=== PATIENT | female | born 1980 | race Caucasian/White ===

== ENCOUNTER 2019-11-20 09:45 | Outpatient (CLI) | payer BC, OTHER ==
[~2019-11-20] VITALS: Ht 167.7 cm; Wt 69.1 kg
[~2019-11-20 09:45] MED LIST: FRS325T PO; OXYC-272 PO
== END 2019-11-20 10:10 | disposition home or self-care (01) ==
LOC: PREOP 09:45
PROVIDERS: ATTEND Surgery
DX: Z01.818 Encounter for other preprocedural examination (principal)

== ENCOUNTER 2019-11-26 06:20 | Day surgery (SDC) | payer BC, OTHER ==
[2019-11-26] VITALS (9 sets, daily range): BP systolic 106–150; BP diastolic 72–84
[~2019-11-26] VITALS: Ht 167 cm; Wt 69.1 kg
[2019-11-26] MEDS ORDERED: ceFAZolin INJECTION 1,000 MG in WATER (STERILE) FOR INJECTION 10 ML IV ONE (06:30)
[2019-11-26] MEDS ORDERED: CATHETER FLUSH 10 ML SYR IV PRN (06:45)
[2019-11-26] MEDS ORDERED: ONDANSETRON 4 MG/2 ML (SDV) Z0FRAN IV ONE (07:00)
[2019-11-26] MEDS ORDERED: MIDAZOLAM 2 MG/2 ML (VERSED) VIAL IV ONE (07:00)
[2019-11-26] MEDS ORDERED: FAMOTIDINE 20MG/2ML IV (PEPCID) IV ONE (07:00)
[2019-11-26] MEDS: LACTATED RINGERS 1,000 ML IV PRN ×2 (07:36→10:16)
--- NOTE | 2019-11-26 08:55 | Diagnostic Imaging Report ---
EXAMINATION: Lymphoscintigraphy INDICATION: melanoma By history the patient has diagnosis of a melanotic lesion in the right lateral axilla. Following aseptic preparation of the skin and administration of local anesthesia 1.1 mCi of 99 technetium sulfur colloid was injected in 4 divided doses about the tumor site. There was uptake in the area of the melanotic lesion. There is also a tiny focus of increased uptake just superior and lateral to the melanotic site. This most likely represents a small lymph node. The skin over the lymph node was marked. IMPRESSION: There has been a successful lymphoscintigraphy procedure. Dictated by: Dictated on workstation # [id number]
--- NOTE | 2019-11-26 09:16 | Progress Note-Pre Operative ---
Pre-Operative Progress Note H&P Reviewed The H&P was reviewed, patient examined and no changes noted. Time Seen by Provider: 09:12 Date H&P Reviewed: Nov 26, 2019 Time H&P Reviewed: 09:13 Pre-Operative Diagnosis: Right breast Melanoma LETHA MEDINA DO Nov 26, 2019 09:16
[2019-11-26] MEDS ORDERED: METHYLENE BLUE 0.5% (PROVAYBLUE) 50 mg/10 ml vial IV ONE (09:26)
[2019-11-26] MEDS ORDERED: BUP/EPI 0.5% 1:200,000 (SENSORCAINE) 30 ML VIAL ONE ×2 (09:27→09:29)
[2019-11-26] MEDS ORDERED: MIDAZOLAM 2 MG/2 ML (VERSED) VIAL ONE (10:22)
[2019-11-26] MEDS ORDERED: fentaNYL INJECTION 100 MCG/2 ML AMP ONE (10:22)
--- NOTE | 2019-11-26 11:20 | Progress Note-Post Operative ---
Post-Operative Progess Note Surgeon (s)/Maintenance Helper (s) Surgeon LETHA MEDINA DO Maintenance Helper: Aleena Pre-Operative Diagnosis Right breast Melanoma Post-Operative Diagnosis same pending path Procedure & Operative Findings Date of Procedure 11/26/19 Procedure Performed/Findings Wide Local excision of right breast melanoma [place] lymph node bx Anesthesia Type LMA Estimated Blood Loss Estimated blood loss (mL): scant Specimens/Packing Specimens Removed breast melanoma sentinel lymph node LETHA MEDINA DO Nov 26, 2019 11:20
[2019-11-26] MEDS ORDERED: HYDR-4226 PO (11:21)
--- NOTE | 2019-11-26 11:22 | Discharge Inst-Surgical ---
Discharge Inst-Surgical Depart Medication/Instructions New, Converted or Re-Newed RX: RX Given to Pt/Family Patient Instructions Follow up Appt: Make appointment for 1 week. [phone] Instructions: No strenuous activity. May shower in 24 hours, no tub bath or soaking. Use incentive spirometer at home as directed. No Smoking Skin/Wound Care: May remove bandages in am. You need to leave the Dermabond on incision it will fall off on it's own. Symptoms to Report: Appetite Changes, Extremity Discoloration, Numbness/Tingling, Swelling Increased, Bleeding Excessive, Eyesight Changes, Pain Increased, Urine Color Cece nge, Constipation(Persistent), Fever over 101 degree F, Pain/Pressure in chest, Urinating Difficulty, Cough Up/Vomit Blood, Heart Beat Irreg/Pounding, Pain/Pressure in jaw, Cramps in feet or legs, Lightheadedness, Pain/Pressure in shoulder, Diarrhea(Persistent), Memory Changes Suddenly, Questions/Concerns, Weight gain consecutive days, Dizziness/Fainting, Nausea/Vomiting, Shortness of Breath, Weight gain over 2 pounds If questions or concerns contact your physician Or seek help at emergency department. Activity Activity as Tolerated: Yes Activity Instructions: Avoid Stress to Incision Driving Instructions: No Driving/Refer to Dr. Andres Discharge Diet: No Restrictions Diet After 24 Hours: Clear Liquid if Nauseous If Any Problems/Questions/Issu: Contact Your Physician, Go to Emergency Room Skin/Wound Care Infection Signs and Symptoms: Increased Redness, Foul Odor of Wound, Increased Drainage, Skin Itchy or Has a Rash, Increased Swelling, Temperature Above 101 F Bathing Instructions: Shower Stitches/Dorothy/Dermabond Dis: Dermabond Ice Pack: Ice On and Off Site (as needed for pain) LETHA MEDINA DO Nov 26, 2019 11:22
[2019-11-26] MEDS ORDERED: LIDOCAINE PF 2% 5 ML (XYLOCAINE) VIAL ONE (11:28)
[2019-11-26] MEDS ORDERED: proPOfol 200 MG/20 ML (DIPRIVAN) VIAL IV ONE (11:28)
[2019-11-26] MEDS ORDERED: SEVOFLURANE (ULTANE) 15 ML INHAL SOLN ONE ×2 (11:28)
[2019-11-26] MEDS ORDERED: ONDANSETRON 4 MG/2 ML (SDV) Z0FRAN ONE (11:29)
[2019-11-26] MEDS ORDERED: morphine INJ 10 MG/ML 1ML (SYR OR VIAL) ONE (11:41)
[2019-11-26] MEDS ORDERED: ONDANSETRON 4 MG/2 ML (SDV) Z0FRAN IVP PRN (12:15)
[2019-11-26] MEDS ORDERED: morphine INJ 10 MG/ML 1ML (SYR OR VIAL) IVP ONE (12:15)
--- NOTE | 2019-11-26 16:01 | Anesthesia-General Post-Op ---
General Patient Condition Mental Status/LOC: Same as Preop Cardiovascular: Satisfactory Nausea/Vomiting: Absent Respiratory: Satisfactory Pain: Controlled Complications: Absent Post Op Complications Complications None Follow Up Care/Instructions Patient Instructions None needed. Anesthesia/Patient Condition Patient Condition Patient is doing well, no complaints, stable vital signs, no apparent adverse anesthesia problems. No complications reported per nursing. SHEN MALONE CRNA Nov 26, 2019 16:01
--- NOTE | 2019-11-27 05:35 | OPERATIVE REPORT ---
DATE OF SERVICE: PREOPERATIVE DIAGNOSIS: Right breast melanoma. POSTOPERATIVE DIAGNOSIS: Right breast melanoma, pending pathology. PROCEDURES: 1. Wide local excision of right breast melanoma. 2. [place] lymph node biopsy. 3. Injection of blue dye. SURGEON: Blayne Luther DO COMMERCIAL [employer]LECTIONS SPECIALIST: Devin Flood DO. ANESTHESIA: LMA. SPECIMEN: 1. Right breast wide local incision. 2. [place] lymph node. BLOOD LOSS: Scant. FLUIDS: Per anesthesia. POSTOPERATIVE CONDITION: Stable. INDICATION FOR PROCEDURE: The patient is a 39-year-old female who had a shave excision of right breast mass. It came back as melanoma, unsure how deep it is, but it was just a little bit less than a millimeter, did not know if it was deeper. She had a wide local excision because there was some question about how deep it was, elected to do a sentinel lymph node biopsy. FINDINGS: The patient had a wide local excision with sentinel lymph node biopsy. The [employer] counter reader was 2002 at the site, 28 on the skin over the hot node, in vivo 387 and ex-vivo 655. PROCEDURE NOTE: After informed consent was obtained, the patient was first sent to radiology for a lymphoscintigraphy with radioactive tracer. Nuclear medicine was performed, which showed a small lymph node just superior to the area of injection, which was right around the previous shaved site. The patient was then brought back to the operating room. The right side was marked. A timeout done and agreed on site marking as well. I then infiltrated the skin with about approximately 2 mL of methylene blue around the previous shave site at the 12, 3, 6, and 9 o'clock position and massaged in for 5 minutes. The patient was then sterilely prepped and draped in normal fashion. An elliptical incision was made, being careful to go outside of this shave excision getting 1 cm to the outside and then 3 cm long in order to perform an elliptical incision to be able to remove this. This was then infiltrated with local and then incised with a #15 blade, carried down through the skin into subcutaneous tissue, then deepened down to subcutaneous tissue with Bovie electrocautery taking out the skin in this area I then was going about a cm below to get the breast tissue below this melanoma. This was then marked short at the point going to the axilla and long lateral stitch. Because this was in the right upper outer quadrant of the breast, we were able to then use this incision, dissect down to the pectoralis muscle. Using the Priya counter, we had preoperatively got a 2002 number at the site and 28 on the skin. I then used this probe to direct the dissection, found a hot node 387 in vivo dissected down and found this it was blue, looked like there was a second node next to it, which was not blue, able to grasp this with a Bradley. This was just under the pectoralis major muscle in the axillary fat pad and then dissect this out with Bovie electrocautery, passed this off the table. Prior to passing off the table, we again checked and was 655 Priya count ex-vivo. This area was then copiously irrigated with sterile water. Hemostasis obtained, it was then closed with a 3-0 Vicryl closing the deep tissue and then 4-0 undyed Monocryl in subcuticular fashion to close the skin. Area was cleaned and dried, dressing placed. The patient tolerated the procedure. Sponge, instrument and needle count correct at the end of the case. She was transferred to recovery room in stable condition. Dr. Flood assisted in this helping to close the incision, helped identify anatomy and hold anatomy out of the way. Job ID: [id number] DocumentID: [id number] Dictated Date: 11/26/2019 21:22:26 Implant Polisher Date: 11/27/2019 05:35:17 Dictated By: DO KRISTINA DANG
== END 2019-11-26 13:45 | disposition home or self-care (01) ==
LOC: CARD 06:20
PROVIDERS: ATTEND Surgery
DX: D03.5 Melanoma in situ of trunk (principal); Z83.3 Family history of diabetes mellitus; Z80.9 Family history of malignant neoplasm, unspecified
CPT/HCPCS: 19120; 38525; 78195; 84703; 87081; A9541; 88305; 88307; 88344